=== PATIENT | female | born 1975 | race Hispanic/Latino ===

== ENCOUNTER 2020-07-27 18:36 | Emergency (ER) | payer OTHER ==
[~2020-07-27] VITALS: Ht 165.1 cm; Wt 68.0 kg
[2020-07-27] MEDS ORDERED: ACETAMINOPHEN 325 MG TAB PO ONE (19:15)
[2020-07-27] MEDS ORDERED: IBUPROFEN IB200 MG PO (19:42)
[2020-07-27] MEDS ORDERED: ACETAMINOPHEN500 MG PO (19:42)
[2020-07-27] MEDS ORDERED: ULTRAM50 MG PO (19:42)
[2020-07-27] MEDS ORDERED: HYDROCODONE/APAP 5MG-325MG TAB PO ONE (20:00)
[2020-07-27] MEDS ORDERED: ONDANSETRON HCL 4 MG ORAL DISINTEGRATING TAB PO ONE (20:00)
[2020-07-27] MEDS ORDERED: IBUPROFEN 200 MG TAB PO ONE (20:08)
[2020-07-27 20:49] VITALS: BP 164/88
== END 2020-07-27 20:51 | disposition home or self-care (01) ==
LOC: FSED 19:03
DX: S82.491A Other fracture of shaft of right fibula, initial encounter for closed fracture (principal); W18.30XA Fall on same level, unspecified, initial encounter; Y93.01 Activity, walking, marching and hiking
CPT/HCPCS: 29515; 73562; 73590; 99284; Q0162